=== PATIENT | female | born 1935 | race Caucasian/White ===

== ENCOUNTER → 2016-10-19 | Outpatient (CLI) | payer MEDICARE ==
[~2016-10-19] MED LIST: CALC500T PO; CHOL20002 PO; CYAN10002 IM; FURO20TA3 PO; SPIR25TA3 PO; TRAM50TA2 PO; WARF3TAB PO
[2016-10-19 13:18] LABS: BLOOD UREA NITROGEN 9 mg/dL (7-18)
[2016-10-19 13:22] LABS: ASPARTATE AMINO TRANSFERASE 19 U/L (15-37)
== END | disposition home or self-care (01) ==
LOC: CFH 07:34
PROVIDERS: ATTEND Internal Medicine Cardiovascular Disease
DX: E78.5 Hyperlipidemia, unspecified (principal); I10 Essential (primary) hypertension; R79.1 Abnormal coagulation profile
CPT/HCPCS: 36415; 80053; 80061; 85610

== ENCOUNTER → 2017-05-06 | Outpatient (CLI) | payer MEDICARE ==
[2017-05-06 12:59] LABS: ALBUMIN 3.5 g/dL (3.4-5.0); ANION GAP 6 mmol/L (5-15); CALCIUM 9.1 mg/dL (8.5-10.1); CHLORIDE 109 mmol/L (98-107)
[2017-05-06 13:13] LABS: BASOPHILS # (AUTO) 0.04 x10^3/uL (0-0.1); BASOPHILS % (AUTO) 1 % (0-1); EOSINOPHILS # (AUTO) 0.05 x10^3/uL (0-0.4); EOSINOPHILS % (AUTO) 1 % (1-7); LYMPHOCYTES # (AUTO) 1.34 x10^3/uL (1-3.4); LYMPHOCYTES % (AUTO) 23 % (22-44); MD NO; MEAN CORPUSCULAR HEMOGLOBIN 31.2 pg (27.0-34.8); MEAN CORPUSCULAR HGB CONC 33.5 g/dL (32.4-35.8); MEAN CORPUSCULAR VOLUME 93.2 fL (80-100); MONOCYTES # (AUTO) 0.32 x10^3/uL (0.2-0.8); MONOCYTES % (AUTO) 6 % (2-9); NEUTROPHILS # (AUTO) 4.17 x10^3/uL (1.8-6.8); NEUTROPHILS % (AUTO) 70 % (42-75); PLATELET COUNT 165 x10^3/uL (130-400); RED CELL DISTRIBUTION WIDTH 13.5 % (9.6-15.2)
[2017-05-06 13:26] LABS: % IRON SATURATION 41 % (20-55); ALANINE AMINOTRANSFERASE 10 U/L (12-78); ALKALINE PHOSPHATASE 43 U/L (45-117); BILIRUBIN,TOTAL 0.9 mg/dL (0.2-1.0); CHOL/HDL RATIO 3.1; CHOLESTEROL, TOTAL 208 mg/dL (140-239); CREATININE 0.62 mg/dL (0.55-1.02); FOLATE LEVEL 15.6 ng/mL (3.1-17.5); HDL CHOL % 32 % (28-40); HDL CHOLESTEROL (DIRECT) 67 mg/dL (40-60); IRON LEVEL 88 mcg/dL (50-170); LDL CHOLESTEROL,CALCULATED 128 mg/dL (54-169); LDL/HDL RATIO 1.9 (0.5-3.0); TOTAL IRON BINDING CAPACITY 214 mcg/dL (250-450); TOTAL PROTEIN 6.6 g/dL (6.4-8.2); TRANSFERRIN 176 mg/dL (200-360); TRIGLYCERIDES 66 mg/dL (50-200); VLDL CHOLESTEROL 13 mg/dL (0-25)
== END ==
LOC: LAB 08:53
PROVIDERS: ATTEND Nurse Practitioner Primary Care
DX: Z12.11 Encounter for screening for malignant neoplasm of colon (principal); Z13.220 Encounter for screening for lipoid disorders; Z12.4 Encounter for screening for malignant neoplasm of cervix; Z12.31 Encounter for screening mammogram for malignant neoplasm of breast; R53.83 Other fatigue; M85.9 Disorder of bone density and structure, unspecified; I82.501 Chronic embolism and thrombosis of unspecified deep veins of right lower extremity; R53.1 Weakness; R60.9 Edema, unspecified; R79.89 Other specified abnormal findings of blood chemistry
CPT/HCPCS: 36415; 80053; 80061; 82306; 82607; 82728; 82746; 83036; 83540; 83550; 84207; 84425; 84443; 84466; 85025

== ENCOUNTER → 2017-05-16 | Outpatient (CLI) | payer MEDICARE, OTHER | END | disposition home or self-care (01) | LOC: CFH 07:50 | PROVIDERS: ATTEND Internal Medicine | DX: Z12.31 Encounter for screening mammogram for malignant neoplasm of breast (principal) | CPT/HCPCS: 77067 ==

== ENCOUNTER → 2018-01-20 | Outpatient (CLI) | payer OTHER ==
[~2018-01-20] MED LIST changes: -CHOL20002 PO; +CHOL200052 PO; -SPIR25TA3 PO; +SPIR25TA5 PO
== END | disposition home or self-care (01) ==
LOC: CVU 06:51
PROVIDERS: ATTEND Internal Medicine Cardiovascular Disease
DX: I34.0 Nonrheumatic mitral (valve) insufficiency (principal); I37.1 Nonrheumatic pulmonary valve insufficiency; Z86.711 Personal history of pulmonary embolism
CPT/HCPCS: 93306

== ENCOUNTER 2019-02-23 08:20 | Inpatient (IN) | payer OTHER ==
[~2019-02-23] VITALS: Ht 160 cm; Wt 68.5 kg
[~2019-02-23 08:20] MED LIST changes: -CALC500T PO; +CALC500T29 PO
--- NOTE | 2019-02-23 08:37 | NUR ---
PT LIFTED FROM THE AND PLACED IN BED NOTED CONTRACTIONS OF FEET AND LEGS PT REPORTS SHE HAS BEEN SLEEPING IN THE Addendum: 02/23/19 at 0859 by CHLOE PREVIOUS NOTE BY ALECIA MALDONADO
[2019-02-23 09:09] LABS: BASOPHILS # (AUTO) 0.04 x10^3/uL (0-0.1); BASOPHILS % (AUTO) 1 % (0-1); EOSINOPHILS # (AUTO) 0.18 x10^3/uL (0-0.4); EOSINOPHILS % (AUTO) 3 % (1-7); LYMPHOCYTES # (AUTO) 1.43 x10^3/uL (1-3.4); LYMPHOCYTES % (AUTO) 22 % (22-44); MD NO; MEAN CORPUSCULAR HEMOGLOBIN 31.6 pg (27.0-34.8); MEAN CORPUSCULAR HGB CONC 32.9 g/dL (32.4-35.8); MEAN CORPUSCULAR VOLUME 95.9 fL (80-100); MEAN PLATELET VOLUME 8.4 fL (7.4-10.4); MONOCYTES # (AUTO) 0.46 x10^3/uL (0.2-0.8); MONOCYTES % (AUTO) 7 % (2-9); NEUTROPHILS # (AUTO) 4.38 x10^3/uL (1.8-6.8); NEUTROPHILS % (AUTO) 67 % (42-75); PLATELET COUNT 165 x10^3/uL (130-400); RED BLOOD COUNT 4.21 x10^6/uL (3.82-5.3); RED CELL DISTRIBUTION WIDTH 14.6 % (9.6-15.2)
[2019-02-23 09:17] LABS: INTERNATIONAL NORMALIZED RATIO 3.17 (0.93-1.1); PROTHROMBIN TIME 31.8 Seconds (9.6-11.5)
--- NOTE | 2019-02-23 09:24 | NUR ---
PT DIFFICULT TO OBTAIN HX FROM WHILE CLINICAL SCREEN ASSESSMENT BEING DONE, PT IS A POOR HISTORIAN. PT STATES SHE IS HERE FOR BLE SWELLING THAT STARTED ONE WK AGO. HER BLE ARE EXTREMLY SWOLLEN WITH SOME ERYTHMA AND DRY PEELING SKIN. PT STATES SHE HAS BEEN IN A WHEELCHAIR FOR OVER A YR BECAUSE SHE FELL A YR AGO AND IT WAS THE ONLY SAFE WAY FOR HER TO GET AROUND. PT STATES SHE IS TAKING A BLOOD THINNER FOR PAIN SHE HAD IN HER SIDE.. PT NOT ABLE TO PROVIDE MED LIST OR HX
[2019-02-23 09:26] LABS: ALBUMIN 3.2 g/dL (3.4-5.0); ANION GAP 8 mmol/L (5-15); CALCIUM 9.1 mg/dL (8.5-10.1); CHLORIDE 105 mmol/L (98-107); CREATININE 0.87 mg/dL (0.55-1.02)
[2019-02-23 09:29] LABS: TROPONIN I < 0.015 ng/mL (0.000-0.045)
--- NOTE | 2019-02-23 10:18 | NUR ---
PT RESTING ON BARBARA WAN NOTED, VSS
--- NOTE | 2019-02-23 10:33 | NUR ---
throughput: SPOKE WITH VELMA AT [facility], DENIED PT TSFR.
--- NOTE | 2019-02-23 11:24 | NUR ---
PT REMAINS WITH NO DISTRESS, ADMITTING MD IN TO EVAL PT. PT WITHOUT A LIST OF MEDICATION, UNABLE TO COMPLETE MED REC
[2019-02-23] MEDS ORDERED: ACETAMINOPHEN 325 MG TABLET PO PRN (11:30)
[2019-02-23] MEDS ORDERED: POTASSIUM CHLORIDE 20 MEQ TAB.ER.PRT PO ONE (11:30)
[2019-02-23] MEDS ORDERED: LABETALOL 5MG/ML, 20ML IVPush PRN (11:30)
[2019-02-23] MEDS ORDERED: DOCUSATE 100 MG CAPSULE PO PRN (11:30)
[2019-02-23] MEDS ORDERED: ONDANSETRON ODT 4 MG PO PRN (11:30)
[2019-02-23] MEDS ORDERED: LIDODERM 5% PATCH TD PRN (11:30)
[2019-02-23 12:09] LABS: D-DIMER 0.44 ug/mlFEU (0.00-0.52); INTERNATIONAL NORMALIZED RATIO 3.24 (0.93-1.1); PROTHROMBIN TIME 32.5 Seconds (9.6-11.5)
--- NOTE | 2019-02-23 12:21 | NUR ---
REPORT GIVEN TO RECIEVING JOEL SCHAEFER
[2019-02-23] MEDS: SPIRONOLACTONE 25 MG TABLET PO SCH ×2 (13:55→20:01)
[2019-02-23] MEDS: [UNRECOGNIZED DRUG - OTHER] MC SCH ×3 (15:00→21:18)
[2019-02-23 15:35] VITALS: BP 109/68
[2019-02-23] MEDS: FUROSEMIDE 20 MG/2 ML IV SCH (15:59)
[2019-02-23] MEDS: CALCIUM CARBONATE 500 MG TABLET PO SCH ×2 (15:59→20:01)
[2019-02-23] MEDS ORDERED: WARFARIN 2.5 MG TABLET PO-COUM SCH (18:00)
[2019-02-23 18:37] VITALS: BP 110/65
[2019-02-23 22:45] LABS: MICROSCOPIC AUTO
[2019-02-23 22:47] LABS: CULTURE INDICATED? YES
[2019-02-24 03:57] VITALS: BP 132/73
[2019-02-24 05:21] LABS: BASOPHILS # (AUTO) 0.03 x10^3/uL (0-0.1); BASOPHILS % (AUTO) 1 % (0-1); EOSINOPHILS % (AUTO) 3 % (1-7); LYMPHOCYTES # (AUTO) 1.41 x10^3/uL (1-3.4); LYMPHOCYTES % (AUTO) 21 % (22-44); MD NO; MEAN CORPUSCULAR HEMOGLOBIN 31.9 pg (27.0-34.8); MEAN CORPUSCULAR HGB CONC 33.4 g/dL (32.4-35.8); MEAN CORPUSCULAR VOLUME 95.4 fL (80-100); MEAN PLATELET VOLUME 8.9 fL (7.4-10.4); MONOCYTES # (AUTO) 0.37 x10^3/uL (0.2-0.8); MONOCYTES % (AUTO) 6 % (2-9); NEUTROPHILS % (AUTO) 70 % (42-75); PLATELET COUNT 167 x10^3/uL (130-400); RED BLOOD COUNT 4.19 x10^6/uL (3.82-5.3); RED CELL DISTRIBUTION WIDTH 14.5 % (9.6-15.2)
[2019-02-24 05:27] LABS: INTERNATIONAL NORMALIZED RATIO 3.05 (0.93-1.1); PROTHROMBIN TIME 30.7 Seconds (9.6-11.5)
[2019-02-24 05:34] LABS: CHLORIDE 109 mmol/L (98-107)
[2019-02-24 05:48] LABS: ALANINE AMINOTRANSFERASE 13 U/L (12-78); ALBUMIN 2.4 g/dL (3.4-5.0); ALKALINE PHOSPHATASE 66 U/L (45-117); ANION GAP 6 mmol/L (5-15); BILIRUBIN,TOTAL 0.7 mg/dL (0.2-1.0); CALCIUM 9.2 mg/dL (8.5-10.1); CREATININE 0.76 mg/dL (0.55-1.02); PREALBUMIN 11.7 mg/dL (20.0-40.0); TOTAL PROTEIN 5.5 g/dL (6.4-8.2)
[2019-02-24 06:59] VITALS: BP 127/75
[2019-02-24] MEDS: FUROSEMIDE 20 MG/2 ML IV SCH (08:14)
[2019-02-24] MEDS ORDERED: WARFARIN 3 MG TABLET PO-COUM SCH (09:00)
[2019-02-24] MEDS: CHOLECALCIFEROL 1,000 UNIT TABLET PO SCH (09:28)
[2019-02-24] MEDS: SPIRONOLACTONE 25 MG TABLET PO SCH ×2 (09:28→19:50)
[2019-02-24] MEDS: CALCIUM CARBONATE 500 MG TABLET PO SCH ×3 (09:28→19:50)
[2019-02-24 13:18] VITALS: BP 127/76
[2019-02-24] MEDS: IBUPROFEN 600 MG TABLET PO PRN (15:07)
[2019-02-24] MEDS: FUROSEMIDE 40 MG/4 ML IV SCH (16:34)
[2019-02-24] MEDS ORDERED: WARFARIN 2.5 MG TABLET PO-COUM SCH (18:00)
[2019-02-24 19:29] VITALS: BP 148/77
[2019-02-25 00:03] VITALS: BP 142/79
[2019-02-25] MEDS ORDERED: ONDANSETRON 2MG/ML, 2ML IVPush PRN (04:30)
[2019-02-25 05:10] LABS: BASOPHILS # (AUTO) 0.02 x10^3/uL (0-0.1); BASOPHILS % (AUTO) 0 % (0-1); EOSINOPHILS # (AUTO) 0.12 x10^3/uL (0-0.4); EOSINOPHILS % (AUTO) 2 % (1-7); LYMPHOCYTES # (AUTO) 0.86 x10^3/uL (1-3.4); LYMPHOCYTES % (AUTO) 14 % (22-44); MD NO; MEAN CORPUSCULAR HEMOGLOBIN 31.9 pg (27.0-34.8); MEAN CORPUSCULAR HGB CONC 33.1 g/dL (32.4-35.8); MEAN CORPUSCULAR VOLUME 96.5 fL (80-100); MEAN PLATELET VOLUME 8.6 fL (7.4-10.4); MONOCYTES # (AUTO) 0.31 x10^3/uL (0.2-0.8); MONOCYTES % (AUTO) 5 % (2-9); NEUTROPHILS # (AUTO) 4.87 x10^3/uL (1.8-6.8); NEUTROPHILS % (AUTO) 79 % (42-75); PLATELET COUNT 160 x10^3/uL (130-400); RED BLOOD COUNT 4.11 x10^6/uL (3.82-5.3); RED CELL DISTRIBUTION WIDTH 14.3 % (9.6-15.2)
[2019-02-25 05:17] LABS: INTERNATIONAL NORMALIZED RATIO 3.23 (0.93-1.1); PROTHROMBIN TIME 32.4 Seconds (9.6-11.5)
[2019-02-25 05:20] LABS: ANION GAP 7 mmol/L (5-15); CHLORIDE 107 mmol/L (98-107)
[2019-02-25] MEDS: FUROSEMIDE 40 MG/4 ML IV SCH ×2 (06:31→16:40)
[2019-02-25 07:24] VITALS: BP 132/73
[2019-02-25] MEDS: CHOLECALCIFEROL 1,000 UNIT TABLET PO SCH (08:59)
[2019-02-25] MEDS: SPIRONOLACTONE 25 MG TABLET PO SCH ×2 (08:59→20:23)
[2019-02-25] MEDS: CALCIUM CARBONATE 500 MG TABLET PO SCH ×3 (08:59→20:23)
[2019-02-25 09:04] LABS: INTERNATIONAL NORMALIZED RATIO 3.47 (0.93-1.1); PROTHROMBIN TIME 34.7 Seconds (9.6-11.5)
[2019-02-25] MEDS ORDERED: POTASSIUM CHLORIDE 20 MEQ TAB.ER.PRT PO ONE (13:00)
[2019-02-25 14:33] VITALS: BP 103/61
[2019-02-25] MEDS: CEFTRIAXONE PMX 1GM/50ML 50 ML IV SCH (14:58)
[2019-02-25] MEDS ORDERED: WARFARIN 1 MG TABLET PO-COUM SCH (18:00)
[2019-02-25] MEDS: IBUPROFEN 600 MG TABLET PO PRN (18:34)
[2019-02-25 18:58] VITALS: BP 113/62
[2019-02-26 00:16] VITALS: BP 102/63
[2019-02-26 05:15] LABS: BASOPHILS # (AUTO) 0.04 x10^3/uL (0-0.1); BASOPHILS % (AUTO) 1 % (0-1); EOSINOPHILS # (AUTO) 0.22 x10^3/uL (0-0.4); EOSINOPHILS % (AUTO) 4 % (1-7); LYMPHOCYTES # (AUTO) 1.96 x10^3/uL (1-3.4); LYMPHOCYTES % (AUTO) 33 % (22-44); MD NO; MEAN CORPUSCULAR HEMOGLOBIN 31.4 pg (27.0-34.8); MEAN CORPUSCULAR VOLUME 95.1 fL (80-100); MEAN PLATELET VOLUME 8.3 fL (7.4-10.4); MONOCYTES # (AUTO) 0.42 x10^3/uL (0.2-0.8); MONOCYTES % (AUTO) 7 % (2-9); NEUTROPHILS # (AUTO) 3.32 x10^3/uL (1.8-6.8); NEUTROPHILS % (AUTO) 56 % (42-75); PLATELET COUNT 162 x10^3/uL (130-400); RED BLOOD COUNT 3.87 x10^6/uL (3.82-5.3); RED CELL DISTRIBUTION WIDTH 14.2 % (9.6-15.2)
[2019-02-26 05:19] LABS: INTERNATIONAL NORMALIZED RATIO 3.61 (0.93-1.1); PROTHROMBIN TIME 36.1 Seconds (9.6-11.5)
[2019-02-26 05:22] LABS: ANION GAP 4 mmol/L (5-15); CALCIUM 9.6 mg/dL (8.5-10.1); CHLORIDE 106 mmol/L (98-107); CREATININE 0.97 mg/dL (0.55-1.02)
[2019-02-26 06:47] VITALS: BP 107/67
[2019-02-26] MEDS ORDERED: HOLD WARFARIN MC PRN (08:30)
[2019-02-26] MEDS: SPIRONOLACTONE 25 MG TABLET PO SCH ×2 (09:39→20:00)
[2019-02-26] MEDS: CHOLECALCIFEROL 1,000 UNIT TABLET PO SCH (09:39)
[2019-02-26] MEDS: CALCIUM CARBONATE 500 MG TABLET PO SCH ×3 (09:39→20:00)
[2019-02-26] MEDS: FUROSEMIDE 20 MG/2 ML IV SCH (09:42)
[2019-02-26] MEDS ORDERED: FUROSEMIDE 20 MG/2 ML ONE (09:42)
[2019-02-26 13:51] VITALS: BP 122/62
[2019-02-26] MEDS: CEFTRIAXONE PMX 1GM/50ML 50 ML IV SCH (14:28)
[2019-02-26 18:57] VITALS: BP 106/63
[2019-02-27 01:08] VITALS: BP 105/64
[2019-02-27 05:38] LABS: INTERNATIONAL NORMALIZED RATIO 2.27 (0.93-1.1); PROTHROMBIN TIME 23.1 Seconds (9.6-11.5)
[2019-02-27 05:44] LABS: ANION GAP 4 mmol/L (5-15); CALCIUM 9.5 mg/dL (8.5-10.1); CHLORIDE 104 mmol/L (98-107)
[2019-02-27 05:45] LABS: CREATININE 0.92 mg/dL (0.55-1.02)
[2019-02-27 07:21] VITALS: BP 104/66
[2019-02-27] MEDS: SPIRONOLACTONE 25 MG TABLET PO SCH ×2 (08:25→20:53)
[2019-02-27] MEDS: FUROSEMIDE 20 MG/2 ML IV SCH (08:26)
[2019-02-27] MEDS: CALCIUM CARBONATE 500 MG TABLET PO SCH ×3 (08:26→20:53)
[2019-02-27] MEDS: CHOLECALCIFEROL 1,000 UNIT TABLET PO SCH (08:26)
[2019-02-27 13:10] VITALS: BP 108/65
[2019-02-27] MEDS: CEFTRIAXONE PMX 1GM/50ML 50 ML IV SCH (15:54)
[2019-02-27] MEDS ORDERED: FLU VACC QS2019-20 36MOS UP/PF 0.5 ML IM-VACC ONE (16:00)
[2019-02-27] MEDS ORDERED: WARFARIN 2.5 MG TABLET PO-COUM ONE (18:00)
[2019-02-27 19:18] VITALS: BP 105/65
[2019-02-28 01:40] VITALS: BP 119/73
[2019-02-28 05:10] LABS: BASOPHILS # (AUTO) 0.04 x10^3/uL (0-0.1); BASOPHILS % (AUTO) 1 % (0-1); EOSINOPHILS % (AUTO) 4 % (1-7); LYMPHOCYTES % (AUTO) 29 % (22-44); MD NO; MEAN CORPUSCULAR HEMOGLOBIN 31.8 pg (27.0-34.8); MEAN CORPUSCULAR VOLUME 96.6 fL (80-100); MEAN PLATELET VOLUME 8.4 fL (7.4-10.4); MONOCYTES # (AUTO) 0.43 x10^3/uL (0.2-0.8); MONOCYTES % (AUTO) 8 % (2-9); NEUTROPHILS # (AUTO) 3.09 x10^3/uL (1.8-6.8); NEUTROPHILS % (AUTO) 59 % (42-75); PLATELET COUNT 162 x10^3/uL (130-400); RED BLOOD COUNT 4.03 x10^6/uL (3.82-5.3); RED CELL DISTRIBUTION WIDTH 14.1 % (9.6-15.2)
[2019-02-28 05:15] LABS: INTERNATIONAL NORMALIZED RATIO 1.69 (0.93-1.1); PROTHROMBIN TIME 17.4 Seconds (9.6-11.5)
[2019-02-28 05:23] LABS: ANION GAP 6 mmol/L (5-15); CALCIUM 9.2 mg/dL (8.5-10.1); CHLORIDE 104 mmol/L (98-107)
[2019-02-28 07:30] VITALS: BP 128/75
[2019-02-28] MEDS: CHOLECALCIFEROL 1,000 UNIT TABLET PO SCH (09:12)
[2019-02-28] MEDS: FUROSEMIDE 20 MG/2 ML IV SCH (09:12)
[2019-02-28] MEDS: CALCIUM CARBONATE 500 MG TABLET PO SCH ×3 (09:12→20:39)
[2019-02-28] MEDS: SPIRONOLACTONE 25 MG TABLET PO SCH ×2 (09:12→20:39)
[2019-02-28 14:00] VITALS: BP 129/72
[2019-02-28] MEDS: CEFTRIAXONE PMX 1GM/50ML 50 ML IV SCH (15:29)
[2019-02-28] MEDS ORDERED: WARFARIN 2 MG TABLET PO-COUM ONE (18:00)
[2019-02-28 19:00] VITALS: BP 104/59
[2019-02-28] MEDS: DOXYCYCLINE 100MG TABLET PO SCH (20:39)
[2019-03-01 01:58] VITALS: BP 130/76
[2019-03-01 05:35] LABS: INTERNATIONAL NORMALIZED RATIO 1.66 (0.93-1.1); PROTHROMBIN TIME 17.1 Seconds (9.6-11.5)
[2019-03-01 06:36] VITALS: BP 109/70
[2019-03-01] MEDS: DOXYCYCLINE 100MG TABLET PO SCH ×2 (09:42→19:56)
[2019-03-01] MEDS: SPIRONOLACTONE 25 MG TABLET PO SCH ×2 (09:42→19:56)
[2019-03-01] MEDS: FUROSEMIDE 20 MG/2 ML IV SCH (09:42)
[2019-03-01] MEDS: CALCIUM CARBONATE 500 MG TABLET PO SCH ×3 (09:42→19:56)
[2019-03-01] MEDS: CHOLECALCIFEROL 1,000 UNIT TABLET PO SCH (09:54)
[2019-03-01 13:39] VITALS: BP 96/58
[2019-03-01] MEDS: CEFTRIAXONE PMX 1GM/50ML 50 ML IV SCH (15:57)
[2019-03-01] MEDS ORDERED: ENOXAPARIN 80 MG/0.8 ML SQ SCH (18:00)
[2019-03-01] MEDS ORDERED: WARFARIN 7.5 MG TABLET PO-COUM ONE (18:00)
[2019-03-01 18:37] VITALS: BP 98/60
[2019-03-02 00:57] VITALS: BP 111/68
[2019-03-02] MEDS ORDERED: ENOXAPARIN 60 MG/0.6 ML SQ SCH (06:00)
[2019-03-02 06:07] LABS: PROTHROMBIN TIME 20.4 Seconds (9.6-11.5)
[2019-03-02 07:53] VITALS: BP 119/71
[2019-03-02] MEDS: DOXYCYCLINE 100MG TABLET PO SCH ×2 (08:05→20:12)
[2019-03-02] MEDS: CHOLECALCIFEROL 1,000 UNIT TABLET PO SCH (08:05)
[2019-03-02] MEDS: CALCIUM CARBONATE 500 MG TABLET PO SCH ×3 (08:06→20:12)
[2019-03-02] MEDS: SPIRONOLACTONE 25 MG TABLET PO SCH ×2 (08:06→20:12)
[2019-03-02] MEDS: FUROSEMIDE 20 MG/2 ML IV SCH (08:06)
[2019-03-02] MEDS: ENOXAPARIN 60 MG/0.6 ML SQ SCH ×2 (08:07→18:41)
[2019-03-02 14:15] VITALS: BP 105/66
[2019-03-02] MEDS: CEFTRIAXONE PMX 1GM/50ML 50 ML IV SCH (15:15)
[2019-03-02] MEDS ORDERED: WARFARIN 3 MG TABLET PO-COUM ONE (18:00)
[2019-03-02 18:58] VITALS: BP 109/69
[2019-03-03 02:19] VITALS: BP 109/60
[2019-03-03 05:26] LABS: INTERNATIONAL NORMALIZED RATIO 2.75 (0.93-1.1); PROTHROMBIN TIME 27.8 Seconds (9.6-11.5)
[2019-03-03] MEDS: ENOXAPARIN 60 MG/0.6 ML SQ SCH (05:52)
[2019-03-03 07:28] VITALS: BP 103/56
[2019-03-03] MEDS: CALCIUM CARBONATE 500 MG TABLET PO SCH ×3 (09:09→19:31)
[2019-03-03] MEDS: DOXYCYCLINE 100MG TABLET PO SCH ×2 (09:09→19:31)
[2019-03-03] MEDS: SPIRONOLACTONE 25 MG TABLET PO SCH ×2 (09:10→19:31)
[2019-03-03] MEDS: CHOLECALCIFEROL 1,000 UNIT TABLET PO SCH (09:12)
[2019-03-03 13:03] VITALS: BP 102/65
[2019-03-03] MEDS: CEFTRIAXONE PMX 1GM/50ML 50 ML IV SCH (15:22)
[2019-03-03] MEDS ORDERED: WARFARIN 2 MG TABLET PO-COUM ONE (18:00)
[2019-03-03 20:29] VITALS: BP 112/70
[2019-03-04 00:36] VITALS: BP 112/70
[2019-03-04 05:11] LABS: INTERNATIONAL NORMALIZED RATIO 2.79 (0.93-1.1); PROTHROMBIN TIME 28.2 Seconds (9.6-11.5)
[2019-03-04 05:13] LABS: BASOPHILS # (AUTO) 0.04 x10^3/uL (0-0.1); BASOPHILS % (AUTO) 1 % (0-1); EOSINOPHILS # (AUTO) 0.18 x10^3/uL (0-0.4); EOSINOPHILS % (AUTO) 3 % (1-7); LYMPHOCYTES # (AUTO) 1.67 x10^3/uL (1-3.4); LYMPHOCYTES % (AUTO) 29 % (22-44); MD NO; MEAN CORPUSCULAR HEMOGLOBIN 31.7 pg (27.0-34.8); MEAN CORPUSCULAR HGB CONC 32.7 g/dL (32.4-35.8); MEAN CORPUSCULAR VOLUME 96.8 fL (80-100); MEAN PLATELET VOLUME 8.6 fL (7.4-10.4); MONOCYTES # (AUTO) 0.41 x10^3/uL (0.2-0.8); MONOCYTES % (AUTO) 7 % (2-9); NEUTROPHILS # (AUTO) 3.48 x10^3/uL (1.8-6.8); NEUTROPHILS % (AUTO) 60 % (42-75); PLATELET COUNT 151 x10^3/uL (130-400); RED CELL DISTRIBUTION WIDTH 14.5 % (9.6-15.2)
[2019-03-04 05:15] LABS: ALANINE AMINOTRANSFERASE 17 U/L (12-78); ALBUMIN 2.6 g/dL (3.4-5.0); ANION GAP 5 mmol/L (5-15); CALCIUM 9.5 mg/dL (8.5-10.1); CHLORIDE 111 mmol/L (98-107); CREATININE 0.89 mg/dL (0.55-1.02)
[2019-03-04 05:17] LABS: ALKALINE PHOSPHATASE 56 U/L (45-117); BILIRUBIN,TOTAL 0.4 mg/dL (0.2-1.0); TOTAL PROTEIN 5.9 g/dL (6.4-8.2)
[2019-03-04 07:30] VITALS: BP 98/53
[2019-03-04] MEDS: DOXYCYCLINE 100MG TABLET PO SCH ×2 (09:40→21:27)
[2019-03-04] MEDS: CALCIUM CARBONATE 500 MG TABLET PO SCH ×3 (09:40→21:27)
[2019-03-04] MEDS: SPIRONOLACTONE 25 MG TABLET PO SCH ×2 (09:40→21:27)
[2019-03-04] MEDS: CHOLECALCIFEROL 1,000 UNIT TABLET PO SCH (09:40)
[2019-03-04 13:25] VITALS: BP 96/60
[2019-03-04] MEDS: CEFTRIAXONE PMX 1GM/50ML 50 ML IV SCH (15:26)
[2019-03-04] MEDS ORDERED: WARFARIN 5 MG TABLET PO-COUM ONE (17:01)
[2019-03-04] MEDS ORDERED: WARFARIN 2.5 MG TABLET PO-COUM ONE (18:00)
[2019-03-04 19:18] VITALS: BP 96/61
[2019-03-05 02:47] VITALS: BP 101/64
[2019-03-05 05:22] LABS: INTERNATIONAL NORMALIZED RATIO 2.6 (0.93-1.1); PROTHROMBIN TIME 26.3 Seconds (9.6-11.5)
[2019-03-05] MEDS: CHOLECALCIFEROL 1,000 UNIT TABLET PO SCH (07:59)
[2019-03-05] MEDS: CALCIUM CARBONATE 500 MG TABLET PO SCH (07:59)
[2019-03-05] MEDS: DOXYCYCLINE 100MG TABLET PO SCH (07:59)
[2019-03-05] MEDS: SPIRONOLACTONE 25 MG TABLET PO SCH (07:59)
[2019-03-05 08:00] VITALS: BP 103/63
[2019-03-05 13:53] VITALS: BP 110/68
[2019-03-05] MEDS ORDERED: FURO20TA3 PO (15:43)
[2019-03-05] MEDS ORDERED: DOXY100T PO (15:43)
[2019-03-05] MEDS ORDERED: WARFARIN 3 MG TABLET PO-COUM ONE (18:00)
== END 2019-03-05 16:35 | disposition home health service (06) | DRG 602 ==
LOC: ED 09:30 → EDIP 10:26 → 3N 12:50 → DCLOUNGE 03-05 16:20
PROVIDERS: ADMIT Internal Medicine; ATTEND Internal Medicine
DX: L03.115 Cellulitis of right lower limb (principal); R53.2 Functional quadriplegia; N39.0 Urinary tract infection, site not specified; E46 Unspecified protein-calorie malnutrition; I50.32 Chronic diastolic (congestive) heart failure; D68.69 Other thrombophilia; B95.2 Enterococcus as the cause of diseases classified elsewhere; Z60.2 Problems related to living alone; I50.9 Heart failure, unspecified; R29.6 Repeated falls; B96.20 Unspecified Escherichia coli [E. coli] as the cause of diseases classified elsewhere; E87.6 Hypokalemia; I27.81 Cor pulmonale (chronic); K44.9 Diaphragmatic hernia without obstruction or gangrene; M19.90 Unspecified osteoarthritis, unspecified site; T50.1X5A Adverse effect of loop [high-ceiling] diuretics, initial encounter; Y92.89 Other specified places as the place of occurrence of the external cause; Z79.01 Long term (current) use of anticoagulants; Z86.711 Personal history of pulmonary embolism; Z91.81 History of falling; Z99.3 Dependence on wheelchair
CPT/HCPCS: 36415; 71045; 80048; 80053; 81001; 82040; 83735; 83880; 84100; 84134; 84443; 84484; 85025; 85379; 85610; 87077; 87086; 87186; 93005; 93306; 93922; G0378; J0696; J1650; J1940; J2405

== ENCOUNTER 2019-04-01 10:24 | Inpatient (IN) | payer OTHER ==
[~2019-04-01] VITALS: Ht 165.1 cm; Wt 73.1 kg
[2019-04-01] VITALS (15 sets, daily range): BP systolic 78–108; BP diastolic 50–87
[~2019-04-01 10:24] MED LIST changes: +DOXY100T PO
[2019-04-01] MEDS ORDERED: SODIUM CHLORIDE FLUSH 10ML SYR IVF ONE (10:30)
--- NOTE | 2019-04-01 10:59 | NUR ---
THIS IS AN 83 YO FEMALE BIB [facility] TWO WEEKS AGO, PATIENT WAS HOSPITALIZED AND WAS DISCHARGED TUESDAY. ON TUESDAY, PATIENT SUFFERED TWO ADDITIONAL MGLF, PATIENT IS ON BLOOD THINNERS AND NOTED AN INCREASE OF BRUISING AND SWELLING IN BILATERAL LOWER EXTREMITIES. DENIES LOC PATIENT ALSO HAS BRUISING OVER ENTIRE BODY, WELL REDNESS AROUND PERINEAL AREA. PATIENT HAS A HX OF PE AND RIGHT SIDED HEART FAILURE, CURRENTLY ON WARFARIN. PATIENT TOOK OFF COMPRESSION STOCKINGS AT HOME. PATIENT IS INCONTINENT OF STOOL AND URINE. PLACED PUREWICK ATTATCHED TO SUCTION, PLACED ON BASEBALL HAND SEWER, NORMAL SINUS RHYTHM NOTED, CONTINUOUS SPO2 AT 98%, CYCLE VITAL SIGNS Q1HR. CLEANED PATIENT UP OF URINE AND STOOL, STRAIGHT CATH PERFORMED TO OBTAIN CLEAN CATCH URINE. PATIENT A&OX4, WITH FAILURE TO THRIVE.
[2019-04-01] MEDS ORDERED: PLEASE ENTER HEIGHT AND WEIGHT MC SCH (11:00)
[2019-04-01 11:11] LABS: CULTURE INDICATED? YES; MICROSCOPIC INDICATED
[2019-04-01 11:18] LABS: BASOPHILS # (AUTO) 0.07 x10^3/uL (0-0.1); BASOPHILS % (AUTO) 1 % (0-1); EOSINOPHILS # (AUTO) 0.13 x10^3/uL (0-0.4); EOSINOPHILS % (AUTO) 1 % (1-7); LYMPHOCYTES # (AUTO) 1.76 x10^3/uL (1-3.4); LYMPHOCYTES % (AUTO) 17 % (22-44); MD NO; MEAN CORPUSCULAR HEMOGLOBIN 31.8 pg (27.0-34.8); MEAN CORPUSCULAR HGB CONC 33.4 g/dL (32.4-35.8); MEAN CORPUSCULAR VOLUME 95.3 fL (80-100); MEAN PLATELET VOLUME 8.2 fL (7.4-10.4); MONOCYTES # (AUTO) 0.63 x10^3/uL (0.2-0.8); MONOCYTES % (AUTO) 6 % (2-9); NEUTROPHILS % (AUTO) 76 % (42-75); PLATELET COUNT 184 x10^3/uL (130-400); RED BLOOD COUNT 2.53 x10^6/uL (3.82-5.3); RED CELL DISTRIBUTION WIDTH 14.8 % (9.6-15.2)
[2019-04-01 11:28] LABS: ALANINE AMINOTRANSFERASE 29 U/L (12-78); ALBUMIN 2.7 g/dL (3.4-5.0); ANION GAP 7 mmol/L (5-15); CALCIUM 8.9 mg/dL (8.5-10.1); CHLORIDE 100 mmol/L (98-107)
[2019-04-01] MEDS: PANTOPRAZOLE 80 MG in SODIUM CHLORIDE 0.9% 100 ML IV SCH ×2 (11:28→21:28)
[2019-04-01] MEDS ORDERED: PANTOPRAZOLE 80 MG in SODIUM CHLORIDE 0.9% 50 ML IVPB ONE (11:28)
[2019-04-01 11:32] LABS: ALKALINE PHOSPHATASE 51 U/L (45-117); BILIRUBIN,TOTAL 2.4 mg/dL (0.2-1.0); CREATINE KINASE, TOTAL 126 U/L (26-192); TOTAL PROTEIN 5.7 g/dL (6.4-8.2)
[2019-04-01] MEDS ORDERED: morphine SULFATE 10 MG/ML, 1ML IVPush PRN (12:00)
[2019-04-01] MEDS ORDERED: ACETAMINOPHEN 325 MG TABLET PO PRN (12:00)
--- NOTE | 2019-04-01 12:04 | NUR ---
REPORT GIVEN TO JOEL DICK. PLAN OF CARE DISCUSSED.
--- NOTE | 2019-04-01 12:19 | NUR ---
BLOOD BANK CALLED TO CONFIRM 4 UNITS OF PLASMA ORDERED WITH NO COAG STUDIES PUBLISHED THEY HAD TO SEND SAMPLE TO [facility]. COULD NOT LOCATE ADMITTING MD. OR NUMBER. CONTACTED MAYELIN MALDONADO TO INFORM. PT TO FLOOR NOW.
[2019-04-01] MEDS ORDERED: PHYTONADIONE 10 MG/ML, 1ML IM ONE ×2 (12:30→21:00)
[2019-04-01 13:44] LABS: % IRON SATURATION 35 % (20-55); IRON LEVEL 63 mcg/dL (50-170); TOTAL IRON BINDING CAPACITY 180 mcg/dL (250-450)
[2019-04-01] MEDS: CALCIUM CARBONATE 500 MG TABLET PO SCH ×3 (16:00→23:21)
[2019-04-01] MEDS: SODIUM CHLORIDE 0.9% 1,000 ML IV SCH (20:37)
[2019-04-02] VITALS (13 sets, daily range): BP systolic 88–109; BP diastolic 50–65
[2019-04-02] MEDS: SODIUM CHLORIDE 0.9% 1,000 ML IV SCH (01:20)
[2019-04-02 06:03] LABS: MEAN CORPUSCULAR HEMOGLOBIN 32.3 pg (27.0-34.8); MEAN CORPUSCULAR HGB CONC 34.3 g/dL (32.4-35.8); MEAN CORPUSCULAR VOLUME 94.4 fL (80-100); RED BLOOD COUNT 2.28 x10^6/uL (3.82-5.3); RED CELL DISTRIBUTION WIDTH 15.3 % (9.6-15.2)
[2019-04-02 06:05] LABS: INTERNATIONAL NORMALIZED RATIO 3.57 (0.93-1.1); PROTHROMBIN TIME 35.7 Seconds (9.6-11.5)
[2019-04-02 06:12] LABS: ANION GAP 5 mmol/L (5-15); CALCIUM 8.4 mg/dL (8.5-10.1); CHLORIDE 104 mmol/L (98-107)
[2019-04-02 06:15] LABS: CREATININE 1.17 mg/dL (0.55-1.02)
[2019-04-02 06:23] LABS: BASOPHILS # (AUTO) 0.03 x10^3/uL (0-0.1); BASOPHILS % (AUTO) 1 % (0-1); EOSINOPHILS # (AUTO) 0.24 x10^3/uL (0-0.4); EOSINOPHILS % (AUTO) 3 % (1-7); LYMPHOCYTES # (AUTO) 1.26 x10^3/uL (1-3.4); LYMPHOCYTES % (AUTO) 17 % (22-44); MD SCAN; MEAN PLATELET VOLUME 7.7 fL (7.4-10.4); MONOCYTES # (AUTO) 0.47 x10^3/uL (0.2-0.8); MONOCYTES % (AUTO) 6 % (2-9); NEUTROPHILS % (AUTO) 73 % (42-75); PLATELET COUNT 135 x10^3/uL (130-400)
[2019-04-02 06:31] LABS: CREATININE,URINE RANDOM 67.1 mg/dL
[2019-04-02] MEDS: PANTOPROZOLE 40MG TABLET PO SCH ×2 (08:12→16:51)
[2019-04-02] MEDS: CALCIUM CARBONATE 500 MG TABLET PO SCH ×3 (08:12→20:58)
[2019-04-03 02:04] VITALS: BP 102/61
[2019-04-03 05:23] LABS: BASOPHILS # (AUTO) 0.02 x10^3/uL (0-0.1); BASOPHILS % (AUTO) 0 % (0-1); EOSINOPHILS # (AUTO) 0.33 x10^3/uL (0-0.4); EOSINOPHILS % (AUTO) 5 % (1-7); LYMPHOCYTES # (AUTO) 1.27 x10^3/uL (1-3.4); LYMPHOCYTES % (AUTO) 17 % (22-44); MD NO; MEAN CORPUSCULAR HEMOGLOBIN 31.7 pg (27.0-34.8); MEAN CORPUSCULAR HGB CONC 33.2 g/dL (32.4-35.8); MEAN CORPUSCULAR VOLUME 95.4 fL (80-100); MEAN PLATELET VOLUME 8.6 fL (7.4-10.4); MONOCYTES # (AUTO) 0.39 x10^3/uL (0.2-0.8); MONOCYTES % (AUTO) 5 % (2-9); NEUTROPHILS # (AUTO) 5.36 x10^3/uL (1.8-6.8); NEUTROPHILS % (AUTO) 73 % (42-75); PLATELET COUNT 163 x10^3/uL (130-400); RED BLOOD COUNT 2.86 x10^6/uL (3.82-5.3); RED CELL DISTRIBUTION WIDTH 15.6 % (9.6-15.2)
[2019-04-03 05:37] LABS: CHLORIDE 108 mmol/L (98-107)
[2019-04-03 05:55] LABS: ANION GAP 6 mmol/L (5-15); CALCIUM 8.7 mg/dL (8.5-10.1); CREATININE 0.81 mg/dL (0.55-1.02)
[2019-04-03 05:56] LABS: ALANINE AMINOTRANSFERASE 20 U/L (12-78); ALKALINE PHOSPHATASE 50 U/L (45-117); TOTAL PROTEIN 4.9 g/dL (6.4-8.2)
[2019-04-03 06:00] LABS: INTERNATIONAL NORMALIZED RATIO 2.06 (0.93-1.1)
[2019-04-03] MEDS: PANTOPROZOLE 40MG TABLET PO SCH ×2 (06:23→17:06)
[2019-04-03 07:20] VITALS: BP 107/65
[2019-04-03] MEDS: CALCIUM CARBONATE 500 MG TABLET PO SCH ×3 (08:15→19:46)
[2019-04-03 12:53] LABS: OCCULT BLOOD POSITIVE (NEGATIVE)
[2019-04-03 14:22] VITALS: BP 98/61
[2019-04-03] MEDS ORDERED: WARFARIN 3 MG TABLET PO-COUM ONE (18:00)
[2019-04-03 19:52] VITALS: BP 110/66
[2019-04-04 04:03] VITALS: BP 129/76
[2019-04-04] MEDS: PANTOPROZOLE 40MG TABLET PO SCH ×2 (05:08→17:00)
[2019-04-04 05:42] LABS: INTERNATIONAL NORMALIZED RATIO 1.62 (0.93-1.1); PROTHROMBIN TIME 16.7 Seconds (9.6-11.5)
[2019-04-04 05:45] LABS: BASOPHILS # (AUTO) 0.03 x10^3/uL (0-0.1); BASOPHILS % (AUTO) 1 % (0-1); EOSINOPHILS # (AUTO) 0.15 x10^3/uL (0-0.4); EOSINOPHILS % (AUTO) 3 % (1-7); LYMPHOCYTES % (AUTO) 17 % (22-44); MD NO; MEAN CORPUSCULAR HEMOGLOBIN 31.3 pg (27.0-34.8); MEAN CORPUSCULAR HGB CONC 33.3 g/dL (32.4-35.8); MEAN PLATELET VOLUME 7.4 fL (7.4-10.4); MONOCYTES # (AUTO) 0.37 x10^3/uL (0.2-0.8); MONOCYTES % (AUTO) 6 % (2-9); NEUTROPHILS # (AUTO) 4.27 x10^3/uL (1.8-6.8); NEUTROPHILS % (AUTO) 73 % (42-75); PLATELET COUNT 182 x10^3/uL (130-400); RED BLOOD COUNT 3.05 x10^6/uL (3.82-5.3); RED CELL DISTRIBUTION WIDTH 15.6 % (9.6-15.2)
[2019-04-04 05:51] LABS: ANION GAP 5 mmol/L (5-15); CALCIUM 8.2 mg/dL (8.5-10.1); CHLORIDE 109 mmol/L (98-107); CREATININE 0.72 mg/dL (0.55-1.02)
[2019-04-04 05:52] LABS: ALANINE AMINOTRANSFERASE 20 U/L (12-78); ALBUMIN 2.1 g/dL (3.4-5.0)
[2019-04-04 05:54] LABS: ALKALINE PHOSPHATASE 56 U/L (45-117); BILIRUBIN,TOTAL 2.9 mg/dL (0.2-1.0)
[2019-04-04 07:50] VITALS: BP 114/71
[2019-04-04] MEDS: CALCIUM CARBONATE 500 MG TABLET PO SCH ×3 (08:27→20:28)
[2019-04-04 13:00] VITALS: BP 109/60
[2019-04-04 19:35] VITALS: BP 107/65
[2019-04-04] MEDS: ASCORBIC ACID 500 MG TABLET PO SCH (20:27)
[2019-04-04] MEDS: CALCIUM CARBONATE 500 MG TAB.CHEW PO SCH (20:28)
[2019-04-05 02:10] VITALS: BP 123/74
[2019-04-05] MEDS: PANTOPROZOLE 40MG TABLET PO SCH ×2 (05:03→16:50)
[2019-04-05 06:06] LABS: BASOPHILS # (AUTO) 0.02 x10^3/uL (0-0.1); BASOPHILS % (AUTO) 0 % (0-1); EOSINOPHILS # (AUTO) 0.17 x10^3/uL (0-0.4); EOSINOPHILS % (AUTO) 3 % (1-7); LYMPHOCYTES # (AUTO) 1.31 x10^3/uL (1-3.4); LYMPHOCYTES % (AUTO) 19 % (22-44); MD NO; MEAN CORPUSCULAR HEMOGLOBIN 32.5 pg (27.0-34.8); MEAN CORPUSCULAR HGB CONC 33.6 g/dL (32.4-35.8); MEAN CORPUSCULAR VOLUME 96.6 fL (80-100); MEAN PLATELET VOLUME 7.4 fL (7.4-10.4); MONOCYTES # (AUTO) 0.36 x10^3/uL (0.2-0.8); MONOCYTES % (AUTO) 5 % (2-9); NEUTROPHILS % (AUTO) 73 % (42-75); PLATELET COUNT 197 x10^3/uL (130-400); RED BLOOD COUNT 3.09 x10^6/uL (3.82-5.3); RED CELL DISTRIBUTION WIDTH 15.5 % (9.6-15.2)
[2019-04-05 06:10] LABS: ALBUMIN 2.3 g/dL (3.4-5.0); ANION GAP 7 mmol/L (5-15); CALCIUM 8.5 mg/dL (8.5-10.1); CHLORIDE 112 mmol/L (98-107); CREATININE 0.72 mg/dL (0.55-1.02)
[2019-04-05 08:02] VITALS: BP 124/75
[2019-04-05] MEDS: CALCIUM CARBONATE 500 MG TABLET PO SCH ×3 (09:38→19:51)
[2019-04-05] MEDS: MULTIVITS,STRESS FORMULA 1 TABLET PO SCH (09:38)
[2019-04-05] MEDS: ASCORBIC ACID 500 MG TABLET PO SCH ×2 (09:38→16:51)
[2019-04-05] MEDS: CALCIUM CARBONATE 500 MG TAB.CHEW PO SCH ×2 (09:39→19:51)
[2019-04-05] MEDS ORDERED: POTASSIUM PHOSPHATE 44 MEQ in SODIUM CHLORIDE 0.9% 500 ML IV ONE (13:30)
[2019-04-05 14:57] VITALS: BP 111/69
[2019-04-05] MEDS ORDERED: CHOLECALCIFEROL 400 UNITS/ML ORAL SOL PO SCH (16:30)
[2019-04-05 19:44] VITALS: BP 109/78
[2019-04-06 00:59] VITALS: BP 119/69
[2019-04-06 04:40] LABS: BASOPHILS # (AUTO) 0.02 x10^3/uL (0-0.1); BASOPHILS % (AUTO) 0 % (0-1); EOSINOPHILS # (AUTO) 0.26 x10^3/uL (0-0.4); EOSINOPHILS % (AUTO) 4 % (1-7); LYMPHOCYTES % (AUTO) 17 % (22-44); MD NO; MEAN CORPUSCULAR HGB CONC 32.9 g/dL (32.4-35.8); MEAN CORPUSCULAR VOLUME 97.1 fL (80-100); MONOCYTES # (AUTO) 0.39 x10^3/uL (0.2-0.8); MONOCYTES % (AUTO) 6 % (2-9); NEUTROPHILS # (AUTO) 4.87 x10^3/uL (1.8-6.8); NEUTROPHILS % (AUTO) 73 % (42-75); PLATELET COUNT 209 x10^3/uL (130-400); RED BLOOD COUNT 3.09 x10^6/uL (3.82-5.3)
[2019-04-06 04:49] LABS: INTERNATIONAL NORMALIZED RATIO 1.7 (0.93-1.1); PROTHROMBIN TIME 17.5 Seconds (9.6-11.5)
[2019-04-06] MEDS: PANTOPROZOLE 40MG TABLET PO SCH ×2 (05:17→17:10)
[2019-04-06 06:57] VITALS: BP 132/74
[2019-04-06] MEDS: CALCIUM CARBONATE 500 MG TABLET PO SCH ×3 (09:20→20:04)
[2019-04-06] MEDS: MULTIVITS,STRESS FORMULA 1 TABLET PO SCH (09:20)
[2019-04-06] MEDS: CALCIUM CARBONATE 500 MG TAB.CHEW PO SCH ×2 (09:21→20:04)
[2019-04-06] MEDS: ASCORBIC ACID 500 MG TABLET PO SCH ×2 (09:21→17:10)
[2019-04-06 13:08] VITALS: BP 121/65
[2019-04-06] MEDS: CHOLECALCIFEROL 400 UNITS TABLET PO SCH (17:10)
[2019-04-06 20:25] VITALS: BP 106/65
[2019-04-07 03:41] VITALS: BP 127/71
[2019-04-07] MEDS: PANTOPROZOLE 40MG TABLET PO SCH ×2 (05:04→16:52)
[2019-04-07 08:14] VITALS: BP 101/63
[2019-04-07] MEDS: MULTIVITS,STRESS FORMULA 1 TABLET PO SCH (09:10)
[2019-04-07] MEDS: CALCIUM CARBONATE 500 MG TABLET PO SCH ×3 (09:11→20:18)
[2019-04-07] MEDS: ASCORBIC ACID 500 MG TABLET PO SCH ×2 (09:11→16:52)
[2019-04-07] MEDS: CALCIUM CARBONATE 500 MG TAB.CHEW PO SCH ×2 (09:11→20:18)
[2019-04-07 15:27] VITALS: BP 96/59
[2019-04-07] MEDS: CHOLECALCIFEROL 400 UNITS TABLET PO SCH (16:56)
[2019-04-07 19:26] VITALS: BP 96/61
[2019-04-08 00:30] VITALS: BP 93/60
[2019-04-08] MEDS: PANTOPROZOLE 40MG TABLET PO SCH ×2 (05:24→16:15)
[2019-04-08 05:40] LABS: ANION GAP 6 mmol/L (5-15); CALCIUM 8.6 mg/dL (8.5-10.1); CHLORIDE 111 mmol/L (98-107)
[2019-04-08 05:42] LABS: CREATININE 0.65 mg/dL (0.55-1.02)
[2019-04-08 05:57] LABS: MEAN CORPUSCULAR HEMOGLOBIN 32.4 pg (27.0-34.8); MEAN CORPUSCULAR HGB CONC 33.2 g/dL (32.4-35.8); MEAN CORPUSCULAR VOLUME 97.7 fL (80-100); MEAN PLATELET VOLUME 7.2 fL (7.4-10.4); PLATELET COUNT 211 x10^3/uL (130-400); RED BLOOD COUNT 3.27 x10^6/uL (3.82-5.3)
[2019-04-08 06:16] LABS: RED CELL DISTRIBUTION WIDTH 17.3 % (9.6-15.2)
[2019-04-08 06:25] LABS: BASOPHILS # (AUTO) 0.02 x10^3/uL (0-0.1); BASOPHILS % (AUTO) 0 % (0-1); EOSINOPHILS # (AUTO) 0.24 x10^3/uL (0-0.4); EOSINOPHILS % (AUTO) 4 % (1-7); LYMPHOCYTES # (AUTO) 1.09 x10^3/uL (1-3.4); LYMPHOCYTES % (AUTO) 17 % (22-44); MD SCAN; MONOCYTES # (AUTO) 0.38 x10^3/uL (0.2-0.8); MONOCYTES % (AUTO) 6 % (2-9); NEUTROPHILS # (AUTO) 4.72 x10^3/uL (1.8-6.8); NEUTROPHILS % (AUTO) 73 % (42-75)
[2019-04-08 07:31] VITALS: BP 119/75
[2019-04-08] MEDS: CALCIUM CARBONATE 500 MG TABLET PO SCH ×3 (08:01→21:03)
[2019-04-08] MEDS: MULTIVITS,STRESS FORMULA 1 TABLET PO SCH (08:01)
[2019-04-08] MEDS: CALCIUM CARBONATE 500 MG TAB.CHEW PO SCH ×2 (08:01→21:03)
[2019-04-08] MEDS: ASCORBIC ACID 500 MG TABLET PO SCH ×2 (08:01→16:15)
[2019-04-08 14:11] VITALS: BP 97/60
[2019-04-08] MEDS: CHOLECALCIFEROL 400 UNITS TABLET PO SCH (16:15)
[2019-04-08 19:35] VITALS: BP 102/65
[2019-04-09 01:15] VITALS: BP 113/70
[2019-04-09] MEDS: PANTOPROZOLE 40MG TABLET PO SCH ×2 (05:16→16:03)
[2019-04-09 07:33] VITALS: BP 122/73
[2019-04-09] MEDS: MULTIVITS,STRESS FORMULA 1 TABLET PO SCH (07:52)
[2019-04-09] MEDS: CALCIUM CARBONATE 500 MG TABLET PO SCH ×3 (07:52→19:22)
[2019-04-09] MEDS: CALCIUM CARBONATE 500 MG TAB.CHEW PO SCH ×2 (07:52→19:21)
[2019-04-09] MEDS: ASCORBIC ACID 500 MG TABLET PO SCH ×2 (07:56→16:03)
[2019-04-09 13:40] VITALS: BP 93/60
[2019-04-09] MEDS: CHOLECALCIFEROL 400 UNITS TABLET PO SCH (16:03)
[2019-04-09 19:47] VITALS: BP 100/60
[2019-04-10 00:15] VITALS: BP 113/68
[2019-04-10 05:00] LABS: BASOPHILS # (AUTO) 0.03 x10^3/uL (0-0.1); BASOPHILS % (AUTO) 0 % (0-1); EOSINOPHILS # (AUTO) 0.11 x10^3/uL (0-0.4); EOSINOPHILS % (AUTO) 1 % (1-7); LYMPHOCYTES # (AUTO) 1.08 x10^3/uL (1-3.4); LYMPHOCYTES % (AUTO) 14 % (22-44); MD NO; MEAN CORPUSCULAR HEMOGLOBIN 32.1 pg (27.0-34.8); MEAN CORPUSCULAR HGB CONC 33.1 g/dL (32.4-35.8); MEAN PLATELET VOLUME 7.3 fL (7.4-10.4); MONOCYTES # (AUTO) 0.38 x10^3/uL (0.2-0.8); MONOCYTES % (AUTO) 5 % (2-9); NEUTROPHILS # (AUTO) 5.92 x10^3/uL (1.8-6.8); NEUTROPHILS % (AUTO) 79 % (42-75); PLATELET COUNT 223 x10^3/uL (130-400); RED BLOOD COUNT 3.21 x10^6/uL (3.82-5.3); RED CELL DISTRIBUTION WIDTH 20.3 % (9.6-15.2)
[2019-04-10 05:11] LABS: ANION GAP 4 mmol/L (5-15); CALCIUM 8.5 mg/dL (8.5-10.1); CHLORIDE 112 mmol/L (98-107)
[2019-04-10] MEDS: PANTOPROZOLE 40MG TABLET PO SCH (05:12)
[2019-04-10 05:15] LABS: CREATININE 0.74 mg/dL (0.55-1.02)
[2019-04-10 07:57] VITALS: BP 111/67
[2019-04-10] MEDS: ASCORBIC ACID 500 MG TABLET PO SCH (07:59)
[2019-04-10] MEDS: MULTIVITS,STRESS FORMULA 1 TABLET PO SCH (07:59)
[2019-04-10] MEDS: CALCIUM CARBONATE 500 MG TABLET PO SCH (08:00)
[2019-04-10] MEDS: CALCIUM CARBONATE 500 MG TAB.CHEW PO SCH (08:02)
[2019-04-10] MEDS ORDERED: FUROSEMIDE 20 MG TABLET PO SCH (09:00)
[2019-04-10] MEDS ORDERED: SPIRONOLACTONE 25 MG TABLET PO SCH (09:00)
[2019-04-10 10:06] VITALS: BP 98/60
[2019-04-10] MEDS ORDERED: WARFARIN 5 MG TABLET PO-COUM ONE ×2 (13:00→13:30)
[2019-04-10] MEDS ORDERED: MULT1TAB76 PO (13:06)
[2019-04-10] MEDS ORDERED: CALC500T29 PO (13:06)
[2019-04-10] MEDS ORDERED: CYAN-27 PO (13:20)
[2019-04-10 13:27] VITALS: BP 113/73
== END 2019-04-10 14:53 | DRG 813 ==
LOC: ED 10:57 → EDIP 11:39 → 4WST 12:31
PROVIDERS: ADMIT Internal Medicine Infectious Disease; ATTEND Internal Medicine
PROC: 30233K1 Transfusion of Nonautologous Frozen Plasma into Peripheral Vein, Percutaneous Approach (ICD-10-PCS; principal; 2019-04-01)
PROC: 30233N1 Transfusion of Nonautologous Red Blood Cells into Peripheral Vein, Percutaneous Approach (ICD-10-PCS; 2019-04-01)
PROC: 0T9B70Z Drainage of Bladder with Drainage Device, Via Natural or Artificial Opening (ICD-10-PCS; 2019-04-01)
DX: D68.32 Hemorrhagic disorder due to extrinsic circulating anticoagulants (principal); N17.0 Acute kidney failure with tubular necrosis; I50.32 Chronic diastolic (congestive) heart failure; T45.515A Adverse effect of anticoagulants, initial encounter; D64.9 Anemia, unspecified; Z88.0 Allergy status to penicillin; E78.5 Hyperlipidemia, unspecified; M19.90 Unspecified osteoarthritis, unspecified site; W18.39XA Other fall on same level, initial encounter; Y93.89 Activity, other specified; Y92.89 Other specified places as the place of occurrence of the external cause; Y99.8 Other external cause status; Z79.01 Long term (current) use of anticoagulants; Z80.0 Family history of malignant neoplasm of digestive organs; Z82.49 Family history of ischemic heart disease and other diseases of the circulatory system; Z86.711 Personal history of pulmonary embolism; Z86.718 Personal history of other venous thrombosis and embolism; Z87.891 Personal history of nicotine dependence; Z90.710 Acquired absence of both cervix and uterus; Z99.3 Dependence on wheelchair; R23.3 Spontaneous ecchymoses
CPT/HCPCS: 36415; 71045; 74176; 80048; 80053; 80069; 81001; 82272; 82550; 82570; 82607; 82728; 83540; 83550; 83735; 83880; 84300; 84443; 85014; 85018; 85025; 85610; 86850; 86900; 86923; 87086; 93005; 93970; G0378; J3430; C9113; J2270; J7030; J7040; P9016; P9017

== ENCOUNTER 2019-05-24 13:49 | Emergency (ER) | payer OTHER ==
[~2019-05-24 13:49] MED LIST changes: +CYAN-27 PO; +MULT1TAB76 PO
--- NOTE | 2019-05-24 13:58 | NUR ---
PT BIB BY [facility]. WAS TOLD BY TO COME TO ED. BOTH OF PTS LEGS- 3+ PITTING EDEMA. STATES THIS STARTED 3 DAYS AGO. RIGHT ANKLE IS DEFORMED. PT SAYS SHE BROKE HER ANKLE YEARS AGO.
[2019-05-24 14:39] LABS: BASOPHILS # (AUTO) 0.06 x10^3/uL (0-0.1); BASOPHILS % (AUTO) 1 % (0-1); EOSINOPHILS # (AUTO) 0.22 x10^3/uL (0-0.4); EOSINOPHILS % (AUTO) 4 % (1-7); LYMPHOCYTES # (AUTO) 1.24 x10^3/uL (1-3.4); LYMPHOCYTES % (AUTO) 20 % (22-44); MD NO; MEAN CORPUSCULAR HEMOGLOBIN 30.7 pg (27.0-34.8); MEAN CORPUSCULAR HGB CONC 32.6 g/dL (32.4-35.8); MEAN CORPUSCULAR VOLUME 94.1 fL (80-100); MEAN PLATELET VOLUME 8.3 fL (7.4-10.4); MONOCYTES # (AUTO) 0.34 x10^3/uL (0.2-0.8); MONOCYTES % (AUTO) 6 % (2-9); NEUTROPHILS % (AUTO) 69 % (42-75); PLATELET COUNT 173 x10^3/uL (130-400); RED BLOOD COUNT 3.93 x10^6/uL (3.82-5.3); RED CELL DISTRIBUTION WIDTH 16.2 % (9.6-15.2)
--- NOTE | 2019-05-24 14:42 | NUR ---
US IN WITH PT
[2019-05-24 14:51] LABS: ALANINE AMINOTRANSFERASE 14 U/L (12-78); ALBUMIN 2.8 g/dL (3.4-5.0); ANION GAP 7 mmol/L (5-15); CALCIUM 8.7 mg/dL (8.5-10.1); CHLORIDE 107 mmol/L (98-107); CREATININE 0.66 mg/dL (0.55-1.02)
[2019-05-24 14:55] LABS: ALKALINE PHOSPHATASE 70 U/L (45-117); BILIRUBIN,TOTAL 0.7 mg/dL (0.2-1.0); TOTAL PROTEIN 6.3 g/dL (6.4-8.2)
--- NOTE | 2019-05-24 15:32 | NUR ---
PT RESTING IN HOSPITAL BED. NO APPARENT DISTRESS. NO NEEDS AT THIS TIME
[2019-05-24 15:48] LABS: INTERNATIONAL NORMALIZED RATIO 2.13 (0.93-1.1)
[2019-05-24 15:50] LABS: PROTHROMBIN TIME 22.8 Seconds (9.6-11.5)
--- NOTE | 2019-05-24 16:18 | NUR ---
PT STATES SHE HAS HAD A "HOME HEALTH" CONSULT. AND HAS BEEN CLEARED TO MOVE ABOUT HER HOUSE AND SHE CAN TAKE CARE OF HERSELF. HER PLAN TO GET HOME IS TO TAKE A WHEELCHAIR TAXI.
[2019-05-24 17:00] VITALS: BP 138/70
== END 2019-05-24 17:01 | disposition home or self-care (01) ==
LOC: ED 16:40
DX: L03.115 Cellulitis of right lower limb (principal); R60.0 Localized edema; I87.2 Venous insufficiency (chronic) (peripheral); I50.9 Heart failure, unspecified; R05 Cough
CPT/HCPCS: 36415; 71045; 80053; 83880; 85025; 85610; 93005; 93970; 99284

== ENCOUNTER 2019-11-22 10:03 | Inpatient (IN) | payer OTHER ==
[~2019-11-22] VITALS: Ht 157.5 cm; Wt 82.5 kg
[2019-11-22] MEDS ORDERED: MORPHINE SULFATE 4 MG/ML, 1ML IVPush PRN (16:00)
[2019-11-22] MEDS ORDERED: ONDANSETRON 2MG/ML, 2ML IVPush PRN (16:00)
[2019-11-22] MEDS ORDERED: ATROPINE OPHTH SOLN 1%, 5ML BC PRN (16:00)
[2019-11-22] MEDS ORDERED: PLEASE ENTER HEIGHT AND WEIGHT MC SCH (16:30)
[2019-11-22] MEDS: SCOPOLAMINE 1MG PATCH TD SCH (18:22)
[2019-11-22] MEDS: SODIUM CHLORIDE 0.9% 1,000 ML IV SCH (20:47)
[2019-11-22] MEDS: MORPHINE SULFATE 4 MG/ML, 1ML IVPush PRN (20:47)
[2019-11-23] MEDS: MORPHINE SULFATE 4 MG/ML, 1ML IVPush PRN ×3 (04:18→21:28)
[2019-11-23] MEDS: LORazepam 2 MG/ML, 1ML IVPush PRN (14:49)
[2019-11-24] MEDS: MORPHINE SULFATE 4 MG/ML, 1ML IVPush PRN (12:43)
[2019-11-24] MEDS: SODIUM CHLORIDE 0.9% 1,000 ML IV SCH (23:06)
[2019-11-25] MEDS: MORPHINE SULFATE 4 MG/ML, 1ML IVPush PRN ×2 (04:56→12:52)
[2019-11-25] MEDS: SCOPOLAMINE 1MG PATCH TD SCH (17:47)
[2019-11-26] MEDS: LORazepam 2 MG/ML, 1ML IVPush PRN (10:26)
== END 2019-11-26 19:10 | disposition expired ==
LOC: 3WST 12:16
PROVIDERS: ADMIT Internal Medicine; ATTEND Internal Medicine
DX: I21.4 Non-ST elevation (NSTEMI) myocardial infarction (principal); I50.33 Acute on chronic diastolic (congestive) heart failure; N39.0 Urinary tract infection, site not specified; N17.9 Acute kidney failure, unspecified; L02.31 Cutaneous abscess of buttock; I82.409 Acute embolism and thrombosis of unspecified deep veins of unspecified lower extremity; D68.69 Other thrombophilia; Z51.5 Encounter for palliative care; Z86.718 Personal history of other venous thrombosis and embolism; Z79.01 Long term (current) use of anticoagulants; Z88.0 Allergy status to penicillin; Z66 Do not resuscitate; R62.7 Adult failure to thrive; B96.4 Proteus (mirabilis) (morganii) as the cause of diseases classified elsewhere; B95.62 Methicillin resistant Staphylococcus aureus infection as the cause of diseases classified elsewhere; R52 Pain, unspecified; I25.10 Atherosclerotic heart disease of native coronary artery without angina pectoris
CPT/HCPCS: G0378; J2270; J2060; J7030